=== PATIENT | female | born 1975 | race Caucasian/White ===

== ENCOUNTER 2016-10-05 21:15 | Emergency (ER) | payer OTHER ==
[~2016-10-05] VITALS: Ht 162.5 cm; Wt 96.6 kg
[~2016-10-05 21:15] MED LIST: FLONASE 0.05% 121 EA NAS; HYDROCODONE BIT1 T11 PO; LAMICTAL25 MG PO; MEDROL DOSEPAK4 MG PO; MELOXICAM15 MG PO; NAPROSYN500 MG PO; PHENERGAN W/ DE30 ML PO; PREDNICOT10 MG PO; PROAIR HFA0.09 MG/AC INH; PROVENTIL0.09 MG/A1 INH; TESSALON PERLE100 M1 PO; TRAMADOL50 MG PO; VIBRAMYCIN100 MG PO; ZOLOFT25 MG PO
[2016-10-05 21:48] LABS: BASO # 0.1 10*3/uL (0.0-0.1); BASO % 0.5 % (0.0-1.0); EOS # 0.3 10*3/uL (0.0-0.4); HEMATOCRIT 42.3 % (37.0-47.0); HEMOGLOBIN 13.9 g/dl (12.0-16.0); LYMPH # 3.6 10*3/uL (1.3-4.4); LYMPH % 35.4 % (27.0-41.0); MEAN CELL VOLUME 88.3 fl (81.0-99.0); MEAN CORPUSCULAR HGB CONC 32.9 g/dl (33.0-37.0); MEAN PLATELET VOLUME 10.2 fl (9.6-12.3); MONO # 0.7 10*3/uL (0.1-1.0); MONO % 6.7 % (3.0-9.0); NEUT # 5.4 10*3/uL (2.3-7.9); NEUT % 54.2 % (47.0-73.0); PLATELET COUNT AUTOMATED 260 10*3/uL (130-400); RED BLOOD COUNT 4.79 10*6/uL (4.10-5.10); RED CELL DISTRI WIDTH 13.7 % (0-14.5)
[2016-10-05 22:27] LABS: BUN 11 mg/dl (7-24); CARBON DIOXIDE 28 mmol/L (21-32); CHLORIDE 109 mmol/L (98-107); EST GLOM FILT AFRICAN AMERICAN > 60 ml/min; GLUCOSE 114 mg/dL (65-99); POTASSIUM 3.9 mmol/L (3.5-5.1); SODIUM 145 mmol/L (136-145)
[2016-10-05 22:31] LABS: TROPONIN I < 0.015 ng/ml (<0.045)
== END 2016-10-05 22:35 | disposition home or self-care (01) ==
LOC: ED 21:15
PROVIDERS: Physician Assistant
DX: R42 Dizziness and giddiness (principal); M79.7 Fibromyalgia; R51 Headache; Z88.8 Allergy status to other drugs, medicaments and biological substances

== ENCOUNTER 2017-03-18 00:58 | Emergency (ER) | payer OTHER ==
[~2017-03-18] VITALS: Ht 162.5 cm; Wt 95.3 kg
[2017-03-18 01:37] LABS: BILIRUBIN NEGATIVE (NEGATIVE); BLOOD NEGATIVE (NEGATIVE); CLARITY SL CLOUDY (CLEAR); COLOR YELLOW (YELLOW); GLUCOSE NEGATIVE (NEGATIVE); KETONE NEGATIVE (NEGATIVE); LEUKO ESTERASE TRACE (NEGATIVE); NITRITE NEGATIVE (NEGATIVE); PH 5.5 (5.0-9.0); SPECIFIC GRAVITY >= 1.030 (1.005-1.030); UROBILINOGEN 0.2 E.U./dl (0.2-1.0)
[2017-03-18 01:44] LABS: EPITHELIAL CELLS 40-45
[2017-03-18] MEDS ORDERED: ANAPROX DS550 MG PO (02:52)
[2017-03-18] MEDS ORDERED: NORCO 5-325 TA1 EACH PO (02:52)
[2017-03-18] MEDS ORDERED: Orphenadrine C100 MG PO (02:52)
== END 2017-03-18 03:05 | disposition home or self-care (01) ==
LOC: ED 00:58
PROVIDERS: Emergency Medicine Emergency Medical Services
DX: S39.012A Strain of muscle, fascia and tendon of lower back, initial encounter (principal); H10.31 Unspecified acute conjunctivitis, right eye; X50.9XXA Other and unspecified overexertion or strenuous movements or postures, initial encounter; Y93.89 Activity, other specified; Y92.89 Other specified places as the place of occurrence of the external cause; Y99.8 Other external cause status; Z88.4 Allergy status to anesthetic agent

== ENCOUNTER 2024-02-19 18:39 | Emergency (ER) | payer OTHER ==
[~2024-02-19] VITALS: Ht 162.5 cm; Wt 104.3 kg
[~2024-02-19 18:39] MED LIST changes: +ANAPROX DS550 MG PO; +NORCO 5-325 TA1 EACH PO; +Orphenadrine C100 MG PO
== END 2024-02-19 22:58 | disposition home or self-care (01) ==
LOC: ED 18:39
DX: S93.402A Sprain of unspecified ligament of left ankle, initial encounter (principal); S80.02XA Contusion of left knee, initial encounter; S79.922A Unspecified injury of left thigh, initial encounter; F32.A Depression, unspecified; F41.9 Anxiety disorder, unspecified; M79.7 Fibromyalgia; Z88.8 Allergy status to other drugs, medicaments and biological substances; Z98.890 Other specified postprocedural states; W10.8XXA Fall (on) (from) other stairs and steps, initial encounter; Y93.89 Activity, other specified; Y92.009 Unspecified place in unspecified non-institutional (private) residence as the place of occurrence of the external cause; Y99.8 Other external cause status